=== PATIENT | male | born 1950 | race Caucasian/White ===

== ENCOUNTER 2018-01-31 | Emergency (ER) | payer MEDICAID | END 2018-02-01 01:18 | disposition home or self-care (01) ==

== ENCOUNTER → 2018-03-03 | Outpatient (CLI) | payer MEDICAID | LOC: FIMAGING 07:46 | PROVIDERS: ATTEND Nurse Practitioner Family | DX: R91.1 Solitary pulmonary nodule (principal); J84.9 Interstitial pulmonary disease, unspecified ==

== ENCOUNTER 2018-04-10 12:20 | Emergency (ER) | payer OTHER, MEDICAID ==
--- NOTE | 2018-04-10 13:59 | EDPHY ---
H & P Stated Complaint: Scrotum Skin Infection Time Seen by Provider: 04/10/18 13:58 HPI/ROS: CHIEF COMPLAINT: Scrotal irritation, hyperkeratosis HISTORY OF PRESENT ILLNESS: The patient presents to the ED with a 1 week history of scrotal irritation and hyperkeratosis. The patient has been using [id number] topical diaper rash medications for treatment of the condition. He denies any fever or dysuria. He denies any vomiting or back pain. The patient denies acute numbness or weakness. REVIEW OF SYSTEMS: A comprehensive 10 point review of systems is otherwise negative aside from elements mentioned in the history of present illness. 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 Minimal scrotal erythema. No fluctuance or testicular tenderness. No clinical evidence of Carly's gangrene Neurological: A&O, normal motor function, normal sensory exam, normal cranial nerves Skin: Warm and dry, no rashes Musculoskeletal: Neck is supple nontender Extremities: symmetrical, full range of motion Psychiatric: Patient is oriented X 3, there is no agitation Constitutional: Initial Vital Signs Temperature (C) 36 C 04/10/18 12:23 Heart Rate 102 H 04/10/18 12:23 Respiratory Rate 18 04/10/18 12:23 Blood Pressure 143/80 H 04/10/18 12:23 O2 Sat (%) 94 04/10/18 12:23 O2 Delivery Mode Room Air Allergies/Adverse Reactions: No Known Allergies Allergy (Verified 10/28/17 10:49) Home Medications: Medication Instructions Recorded Venlafaxine Xr [Effexor Xr 75MG 225 mg PO DAILY 03/25/14 (*)] Cephalexin [Keflex] 500 mg PO QID #40 cap 04/10/18 Clotrimazole 1% [Lotrimin 1%] 2 inch TP BID #1 tube 04/10/18 Medical Decision Making ED Course/Re-evaluation: The patient will be prescribed topical of clotrimazole and oral Keflex. The patient is nontoxic and well-appearing. He is advised to follow up with his urologist for a recheck within the week. He should return to the ED for increasing pain, fever, redness or other concerns. Differential Diagnosis: Differential diagnosis considered includes Carly's gangrene, scrotal abscess , scrotal cellulitis Departure - Departure Disposition: Home, Routine, Self-Care Clinical Impression: Cellulitis of scrotum Condition: Good Instructions: Cellulitis (ED) Additional Instructions: 1. Please schedule a follow-up appointment with Dr. De La Cruz for a recheck next week. 2. Apply topical ointment as prescribed twice a day for the next 2 weeks. 3. Take antibiotics as prescribed. 4. Return to the ED for markedly increased pain, redness, swelling or other concerns. Referrals: Deng De La Cruz MD [Medical Doctor] - As per Instructions
[2018-04-10 14:42] VITALS: BP 117/81
== END 2018-04-10 14:40 | disposition home or self-care (01) ==
DX: N49.2 Inflammatory disorders of scrotum (principal); L85.9 Epidermal thickening, unspecified; F17.200 Nicotine dependence, unspecified, uncomplicated